=== PATIENT | male | born 1950 | race African-American/Black ===

== ENCOUNTER 2018-09-15 19:06 | Emergency (ER) | payer MEDICARE, OTHER ==
[~2018-09-15] VITALS: Ht 180.3 cm; Wt 90.0 kg
[2018-09-15 20:08] LABS: BASOPHILS % 0.9 % (0.0-2.0); EOSINOPHILS % 2.1 % (0.0-5.0); HEMATOCRIT. 35.4 % (42.0-52.0); HEMOGLOBIN. 11.5 g/dL (14.0-18.0); LYMPHOCYTES % 30.6 % (20.0-50.0); MEAN CORPUSCULAR VOLUME 80.1 fL (80.0-94.0); MEAN PLATELET VOLUME 7.9 fl (7.4-10.4); MONOCYTES % 11.5 % (2.0-8.0); NEUTROPHILS % 54.9 % (40.0-76.0); PLATELET 217 x1000/uL (130-400); RED BLOOD CELL COUNT 4.41 mill/uL (4.7-6.1)
[2018-09-15 20:14] LABS: CHLORIDE 105 mEq/L (98-107)
[2018-09-15 22:59] VITALS: BP 166/78
== END 2018-09-15 23:01 | disposition home or self-care (01) ==
LOC: ER 19:06
DX: R55 Syncope and collapse (principal); E11.9 Type 2 diabetes mellitus without complications; I10 Essential (primary) hypertension; E78.00 Pure hypercholesterolemia, unspecified
CPT/HCPCS: 36415; 93005; 99284

== ENCOUNTER 2019-04-07 20:57 | Inpatient (IN) | payer MEDICARE, OTHER ==
[~2019-04-07] VITALS: Ht 177.8 cm; Wt 95.3 kg
[2019-04-07] MEDS ORDERED: ATROPINE SULFATE 1MG/10ML SYR IV ONE (22:45)
[2019-04-07] MEDS ORDERED: DOPAMINE 400MG/250ML PREMIX 250 ML IV ONE (23:00)
[2019-04-07 23:29] LABS: BASOPHILS % 0.6 % (0.0-2.0); EOSINOPHILS % 1.4 % (0.0-5.0); HEMOGLOBIN. 11.2 g/dL (14.0-18.0); LYMPHOCYTES % 30.2 % (20.0-50.0); MEAN CORPUSCULAR HEMOGLOBIN 25.9 pg (28.0-32.0); MEAN CORPUSCULAR VOLUME 78.9 fL (80.0-94.0); MEAN PLATELET VOLUME 7.4 fl (7.4-10.4); NEUTROPHILS % 54.8 % (40.0-76.0); PLATELET 228 x1000/uL (130-400); RED BLOOD CELL COUNT 4.32 mill/uL (4.7-6.1); RED CELL DISTRIBUTION WIDTH 15.4 % (11.6-14.6)
[2019-04-07 23:37] LABS: CHLORIDE 99 mEq/L (98-107)
[2019-04-08] MEDS ORDERED: MAGNESIUM/ALUMINUM HYDROXIDE/SIMETHICONE 30ML UDC PO PRN ×2 (02:30→13:00)
[2019-04-08] MEDS ORDERED: DIPHENHYDRAMINE 50MG/ML VIAL IV PRN ×2 (02:30→13:00)
[2019-04-08] MEDS ORDERED: GUAIFENESIN 200MG/10ML SUGAR FREE UDC PO PRN (02:30)
[2019-04-08] MEDS ORDERED: ACETAMINOPHEN 325MG TABLET PO PRN ×2 (02:30→13:00)
[2019-04-08] MEDS: SODIUM CHLORIDE 0.9% 1,000 ML IV SCH ×2 (03:46→04:16)
[2019-04-08] MEDS ORDERED: ONDANSETRON HCL 4MG/2ML INJ IV PRN ×2 (04:45→13:00)
[2019-04-08] MEDS ORDERED: DOPAMINE 400MG/250ML PREMIX 250 ML IV ONE ×2 (04:45→12:08)
[2019-04-08 07:30] LABS: CLARITY URINE CLEAR (CLEAR); COLOR URINE YELLOW (YELLOW); KETONES URINE TRACE (NEGATIVE); LEUKOCYTE ESTERASE URINE TRACE (NEGATIVE); NITRITE URINE NEGATIVE (NEGATIVE); OCCULT BLOOD URINE NEGATIVE (NEGATIVE); PROTEIN URINE 1+ (NEGATIVE); SPECIFIC GRAVITY URINE 1.008 (1.005-1.030); UROBILINOGEN URINE 0.2 E.U./dL (0.2-1.0)
[2019-04-08] MEDS ORDERED: POTASSIUM CHLORIDE 20MEQ TABLET SR PO NR (10:00)
[2019-04-08] MEDS ORDERED: DEXTROSE 50% WATER 50ML SYRINGE IV PRN (13:00)
[2019-04-08] MEDS: INSULIN LISPRO 100 UNITS/ML SUBCUT SCH ×3 (13:20→21:00)
[2019-04-08] MEDS: ENOXAPARIN 40MG/0.4ML SYR SUBCUT SCH (14:07)
[2019-04-08] MEDS: BLOOD SUGAR DIAGNOSTIC STRIP TEST SCH ×3 (14:10→21:34)
[2019-04-08] MEDS: SODIUM CHLORIDE 0.9% INJ 3ML FLUSH IVF SCH ×2 (14:12→22:09)
[2019-04-08] MEDS ORDERED: DOPAMINE 400MG/250ML PREMIX 250 ML IV SCH (19:30)
[2019-04-09] VITALS (12 sets, daily range): BP systolic 164–183; BP diastolic 83–95
[2019-04-09] MEDS ORDERED: DOPAMINE 400MG/250ML PREMIX 250 ML IV ONE (04:21)
[2019-04-09] MEDS ORDERED: DOPAMINE 400MG/250ML PREMIX 250 ML IV SCH (04:30)
[2019-04-09 05:24] LABS: BASOPHILS % 0.4 % (0.0-2.0); EOSINOPHILS % 0.4 % (0.0-5.0); HEMATOCRIT. 37.9 % (42.0-52.0); HEMOGLOBIN. 12.3 g/dL (14.0-18.0); LYMPHOCYTES % 16.9 % (20.0-50.0); MEAN CORPUSCULAR VOLUME 80.2 fL (80.0-94.0); MEAN PLATELET VOLUME 7.7 fl (7.4-10.4); MONOCYTES % 11.5 % (2.0-8.0); NEUTROPHILS % 70.8 % (40.0-76.0); PLATELET 233 x1000/uL (130-400); RED BLOOD CELL COUNT 4.73 mill/uL (4.7-6.1); RED CELL DISTRIBUTION WIDTH 15.5 % (11.6-14.6)
[2019-04-09 05:26] LABS: CHLORIDE 106 mEq/L (98-107)
[2019-04-09 05:34] LABS: HDL CHOLESTEROL 49 mg/dL (40-59); LDL CHOLESTEROL 135 mg/dL (5-100)
[2019-04-09 05:35] LABS: CREATINE KINASE 93 IU/L (39-308); CREATINE KINASE MB FRACTION 1.5 ng/mL (0.5-3.6)
[2019-04-09 06:17] LABS: DIGOXIN 0.1 ng/mL (0.9-2.0)
[2019-04-09] MEDS: SODIUM CHLORIDE 0.9% INJ 3ML FLUSH IVF SCH ×2 (06:32→22:00)
[2019-04-09] MEDS: INSULIN LISPRO 100 UNITS/ML SUBCUT SCH ×3 (08:20→21:00)
[2019-04-09] MEDS: BLOOD SUGAR DIAGNOSTIC STRIP TEST SCH ×4 (08:36→21:00)
[2019-04-09] MEDS: ENOXAPARIN 40MG/0.4ML SYR SUBCUT SCH (09:07)
[2019-04-09] MEDS ORDERED: HYDRALAZINE 20MG/ML VIAL IV PRN (15:00)
[2019-04-09] MEDS ORDERED: POTASSIUM CHLORIDE 20MEQ TABLET SR PO ONE (15:00)
[2019-04-09] MEDS ORDERED: POTASSIUM CHLORIDE 20MEQ TABLET SR PO NR (21:00)
[2019-04-09] MEDS: AMLODIPINE 5MG TABLET PO SCH (22:17)
[2019-04-10] VITALS (52 sets, daily range): BP systolic 122–180; BP diastolic 51–98
[2019-04-10 05:39] LABS: BASOPHILS % 0.9 % (0.0-2.0); CHLORIDE 109 mEq/L (98-107); EOSINOPHILS % 2.9 % (0.0-5.0); HEMATOCRIT. 36.7 % (42.0-52.0); HEMOGLOBIN. 11.9 g/dL (14.0-18.0); LYMPHOCYTES % 27.4 % (20.0-50.0); MEAN CORPUSCULAR VOLUME 80.6 fL (80.0-94.0); MEAN PLATELET VOLUME 7.7 fl (7.4-10.4); MONOCYTES % 14.9 % (2.0-8.0); NEUTROPHILS % 53.9 % (40.0-76.0); PLATELET 237 x1000/uL (130-400); RED BLOOD CELL COUNT 4.56 mill/uL (4.7-6.1); RED CELL DISTRIBUTION WIDTH 15.6 % (11.6-14.6)
[2019-04-10] MEDS: SODIUM CHLORIDE 0.9% INJ 3ML FLUSH IVF SCH ×3 (06:00→21:03)
[2019-04-10] MEDS: BLOOD SUGAR DIAGNOSTIC STRIP TEST SCH ×6 (06:30→21:00)
[2019-04-10] MEDS: INSULIN LISPRO 100 UNITS/ML SUBCUT SCH ×5 (07:00→21:00)
[2019-04-10] MEDS: AMLODIPINE 5MG TABLET PO SCH ×2 (08:35→21:00)
[2019-04-10] MEDS: ENOXAPARIN 40MG/0.4ML SYR SUBCUT SCH (08:36)
[2019-04-10] MEDS: SODIUM CHLORIDE 0.9% 1,000 ML IV SCH (10:38)
[2019-04-10] MEDS ORDERED: MAGNESIUM 1 G PREMIX 100 ML IV SCH (11:00)
[2019-04-10] MEDS ORDERED: LOSARTAN POTASSIUM 25 MG TABLET PO SCH (14:30)
[2019-04-10] MEDS: ISOSORB DINIT/HYDRALAZINE HCL 20/37.5MG TABLET PO SCH (22:00)
[2019-04-11] VITALS: BP 151/92
[2019-04-11] MEDS: SODIUM CHLORIDE 0.9% 1,000 ML IV SCH (02:40)
[2019-04-11 04:00] VITALS: BP 159/89
[2019-04-11] MEDS: ISOSORB DINIT/HYDRALAZINE HCL 20/37.5MG TABLET PO SCH (05:27)
[2019-04-11] MEDS: SODIUM CHLORIDE 0.9% INJ 3ML FLUSH IVF SCH ×3 (05:27→20:33)
[2019-04-11 07:36] LABS: BASOPHILS % 0.8 % (0.0-2.0); EOSINOPHILS % 2.8 % (0.0-5.0); HEMATOCRIT. 33.7 % (42.0-52.0); HEMOGLOBIN. 11.2 g/dL (14.0-18.0); LYMPHOCYTES % 25.6 % (20.0-50.0); MEAN CORPUSCULAR HEMOGLOBIN 26.8 pg (28.0-32.0); MEAN CORPUSCULAR VOLUME 80.4 fL (80.0-94.0); MEAN PLATELET VOLUME 7.7 fl (7.4-10.4); MONOCYTES % 13.5 % (2.0-8.0); NEUTROPHILS % 57.3 % (40.0-76.0); PLATELET 220 x1000/uL (130-400); RED BLOOD CELL COUNT 4.19 mill/uL (4.7-6.1); RED CELL DISTRIBUTION WIDTH 15.6 % (11.6-14.6)
[2019-04-11 08:00] VITALS: BP_SYST 160; BP_SYST 166; BP_DIAS 94
[2019-04-11] MEDS: INSULIN LISPRO 100 UNITS/ML SUBCUT SCH ×4 (08:10→20:33)
[2019-04-11] MEDS: BLOOD SUGAR DIAGNOSTIC STRIP TEST SCH ×4 (08:34→20:32)
[2019-04-11] MEDS ORDERED: LOSARTAN POTASSIUM 25 MG TABLET PO SCH (09:00)
[2019-04-11] MEDS: ENOXAPARIN 40MG/0.4ML SYR SUBCUT SCH (09:01)
[2019-04-11] MEDS: AMLODIPINE 5MG TABLET PO SCH ×2 (09:02→18:30)
[2019-04-11 12:00] VITALS: BP 159/100
[2019-04-11] MEDS: ISOSORBIDE DINITRATE 20MG TABLET PO SCH ×2 (12:56→22:09)
[2019-04-11] MEDS: HYDRALAZINE HCL 25MG TABLET PO SCH ×2 (12:57→22:09)
[2019-04-11 16:00] VITALS: BP 139/80
[2019-04-11 20:00] VITALS: BP 131/78
[2019-04-11] MEDS: LOSARTAN POTASSIUM 25 MG TABLET PO SCH (20:30)
[2019-04-12] VITALS: BP 106/59
[2019-04-12] MEDS: SODIUM CHLORIDE 0.9% 1,000 ML IV SCH (02:30)
[2019-04-12 04:00] VITALS: BP 135/73
[2019-04-12] MEDS: ISOSORBIDE DINITRATE 20MG TABLET PO SCH ×3 (06:05→22:29)
[2019-04-12] MEDS: SODIUM CHLORIDE 0.9% INJ 3ML FLUSH IVF SCH ×3 (06:06→22:00)
[2019-04-12] MEDS: HYDRALAZINE HCL 25MG TABLET PO SCH ×3 (06:06→22:29)
[2019-04-12] MEDS: BLOOD SUGAR DIAGNOSTIC STRIP TEST SCH ×4 (07:40→21:24)
[2019-04-12 08:00] VITALS: BP 135/66
[2019-04-12] MEDS: INSULIN LISPRO 100 UNITS/ML SUBCUT SCH ×4 (08:10→21:00)
[2019-04-12] MEDS: ENOXAPARIN 40MG/0.4ML SYR SUBCUT SCH (08:25)
[2019-04-12] MEDS: LOSARTAN POTASSIUM 25 MG TABLET PO SCH ×2 (08:25→21:23)
[2019-04-12] MEDS: AMLODIPINE 5MG TABLET PO SCH ×3 (08:26→17:53)
[2019-04-12 12:00] VITALS: BP 137/83
[2019-04-12 16:00] VITALS: BP 147/83
[2019-04-12 20:00] VITALS: BP 125/73
[2019-04-12] MEDS: ATORVASTATIN CALCIUM 20MG TABLET PO SCH (21:23)
[2019-04-12] MEDS: ENOXAPARIN 30MG/0.3ML SYR SUBCUT SCH (21:24)
[2019-04-13] VITALS: BP 111/61
[2019-04-13] MEDS: METOPROLOL TARTRATE 25MG TABLET PO SCH ×3 (00:58→21:05)
[2019-04-13] MEDS: SODIUM CHLORIDE 0.9% 1,000 ML IV SCH ×3 (01:31→21:22)
[2019-04-13 04:00] VITALS: BP 120/67
[2019-04-13] MEDS: SODIUM CHLORIDE 0.9% INJ 3ML FLUSH IVF SCH ×3 (06:00→21:09)
[2019-04-13 06:48] LABS: HEMATOCRIT. 32.8 % (42.0-52.0); MEAN CORPUSCULAR HEMOGLOBIN 27.3 pg (28.0-32.0); PLATELET 239 x1000/uL (130-400); RED BLOOD CELL COUNT 4.05 mill/uL (4.7-6.1); RED CELL DISTRIBUTION WIDTH 15.5 % (11.6-14.6)
[2019-04-13] MEDS: HYDRALAZINE HCL 25MG TABLET PO SCH ×3 (07:10→21:10)
[2019-04-13] MEDS: ISOSORBIDE DINITRATE 20MG TABLET PO SCH ×3 (07:10→21:10)
[2019-04-13] MEDS: BLOOD SUGAR DIAGNOSTIC STRIP TEST SCH ×4 (07:11→21:06)
[2019-04-13] MEDS: INSULIN LISPRO 100 UNITS/ML SUBCUT SCH ×4 (07:57→21:00)
[2019-04-13 08:00] VITALS: BP 143/82
[2019-04-13] MEDS: ENOXAPARIN 30MG/0.3ML SYR SUBCUT SCH ×2 (08:33→21:06)
[2019-04-13] MEDS: LOSARTAN POTASSIUM 25 MG TABLET PO SCH (08:33)
[2019-04-13] MEDS: AMLODIPINE 5MG TABLET PO SCH ×3 (08:34→17:18)
[2019-04-13 11:52] LABS: CLARITY URINE CLEAR (CLEAR); COLOR URINE YELLOW (YELLOW); KETONES URINE TRACE (NEGATIVE); LEUKOCYTE ESTERASE URINE NEGATIVE (NEGATIVE); NITRITE URINE NEGATIVE (NEGATIVE); OCCULT BLOOD URINE NEGATIVE (NEGATIVE); PH URINE 5.5 (4.5-8.0); PROTEIN URINE 1+ (NEGATIVE); SPECIFIC GRAVITY URINE 1.015 (1.005-1.030); UROBILINOGEN URINE 0.2 E.U./dL (0.2-1.0)
[2019-04-13 12:00] VITALS: BP 130/82
[2019-04-13 13:52] LABS: PLATELET ESTIMATE NORMAL
[2019-04-13 16:00] VITALS: BP 152/82
[2019-04-13 20:00] VITALS: BP 161/85
[2019-04-13] MEDS: LOSARTAN POTASSIUM 50 MG TABLET PO SCH (21:04)
[2019-04-13] MEDS: ATORVASTATIN CALCIUM 20MG TABLET PO SCH (21:04)
[2019-04-14] VITALS: BP 140/78
[2019-04-14 04:00] VITALS: BP 131/71
[2019-04-14] MEDS: SODIUM CHLORIDE 0.9% INJ 3ML FLUSH IVF SCH ×2 (05:23→13:15)
[2019-04-14 05:30] VITALS: BP 129/77
[2019-04-14] MEDS: HYDRALAZINE HCL 25MG TABLET PO SCH ×2 (05:33→13:15)
[2019-04-14] MEDS: ISOSORBIDE DINITRATE 20MG TABLET PO SCH ×2 (05:33→13:15)
[2019-04-14] MEDS: INSULIN LISPRO 100 UNITS/ML SUBCUT SCH ×3 (07:33→16:58)
[2019-04-14] MEDS: BLOOD SUGAR DIAGNOSTIC STRIP TEST SCH ×3 (07:33→16:46)
[2019-04-14 07:40] VITALS: BP 138/73
[2019-04-14] MEDS: LOSARTAN POTASSIUM 50 MG TABLET PO SCH (09:02)
[2019-04-14] MEDS: ENOXAPARIN 30MG/0.3ML SYR SUBCUT SCH (09:02)
[2019-04-14] MEDS: METOPROLOL TARTRATE 25MG TABLET PO SCH (09:03)
[2019-04-14] MEDS: AMLODIPINE 5MG TABLET PO SCH ×3 (09:03→16:35)
[2019-04-14 12:00] VITALS: BP 133/75
[2019-04-14 16:59] VITALS: BP 132/74
== END 2019-04-14 17:47 | disposition home or self-care (01) | DRG 682 ==
LOC: ER 20:57 → MICUNO 04-08 00:04 → EDBEDREQSVC 04-09 06:50 → EDBEDREQDT 04-09 06:50 → EDBEDREQTM 04-09 06:50 → EDBEDREQSVC 04-09 16:18 → ENRESERV 04-09 19:02 → 7WST 04-10 11:55
PROVIDERS: ADMIT Internal Medicine; ATTEND Internal Medicine
DX: N17.0 Acute kidney failure with tubular necrosis (principal); G93.41 Metabolic encephalopathy; E46 Unspecified protein-calorie malnutrition; E87.0 Hyperosmolality and hypernatremia; I47.1 Supraventricular tachycardia; I48.92 Unspecified atrial flutter; I44.1 Atrioventricular block, second degree; N18.9 Chronic kidney disease, unspecified; E78.5 Hyperlipidemia, unspecified; I48.0 Paroxysmal atrial fibrillation; I45.10 Unspecified right bundle-branch block; E87.6 Hypokalemia; E11.22 Type 2 diabetes mellitus with diabetic chronic kidney disease; E78.00 Pure hypercholesterolemia, unspecified; I12.9 Hypertensive chronic kidney disease with stage 1 through stage 4 chronic kidney disease, or unspecified chronic kidney disease; Z53.29 Procedure and treatment not carried out because of patient's decision for other reasons; T44.7X5A Adverse effect of beta-adrenoreceptor antagonists, initial encounter; Y92.89 Other specified places as the place of occurrence of the external cause; Z90.12 Acquired absence of left breast and nipple; Z85.3 Personal history of malignant neoplasm of breast; Z86.79 Personal history of other diseases of the circulatory system; Z83.3 Family history of diabetes mellitus; Z68.30 Body mass index [BMI] 30.0-30.9, adult
CPT/HCPCS: 36415; 71045; 80048; 80053; 80061; 80162; 81003; 82550; 82553; 82962; 83735; 83880; 84443; 84484; 85025; 85379; 93005; 93306; 93970; 99291; J0360; J0461; J1265; J1650; J3475